=== PATIENT | female | born 1945 | race Caucasian/White ===

== ENCOUNTER → 2016-08-22 10:08 | Outpatient (CLI) | payer MEDICARE ==
[2016-08-08 12:09] VITALS: BMI 44.7
[~2016-08-22 10:08] MED LIST: BREO ELLIPTA 11 EACH INH; CRESTOR10 MG PO; FUROSEMIDE40 MG PO; HUMALOG 30100 UNITS/ SC; HUMALOG MIX 75/23 ML SC; IPRATROPIUM BR21 MCG NASAL; K-DUR20 MEQ PO; LANTUS INSULIN10 ML SC; LANTUS SOL100 UNIT/1; LYRICA50 MG PO; PRINIVIL10 MG PO; SINGULAIR10 MG PO; SORINE80 MG PO; SYNTHROID300 MCG PO; TOPROL XL25 MG PO; XARELTO20 MG PO; ZOLOFT50 MG PO
== END | disposition home or self-care (01) ==
LOC: D.CT 10:08
DX: N95.0 Postmenopausal bleeding (principal)

== ENCOUNTER 2016-11-14 05:15 | Day surgery (SDC) | payer MEDICARE ==
[2016-11-12 12:53] LABS: BASOPHILS 0.3 % (0.0-2.0); EOSINOPHILS 2.3 % (0-7); HEMATOCRIT 38.9 % (36.0-48.0); HEMOGLOBIN 11.4 g/dL (12-16); IMMATURE GRANULOCYTES 0.1 % (0-5); MCH 22.8 pg (26.0-34.0); MCHC 29.3 g/dL (31.0-37.0); MONOCYTES 8.4 % (2-11); NEUTROPHILS 52.9 % (40-80); PLATELET COUNT 267 10x3/uL (130-400); RBC 4.99 10x6/uL (4.00-5.40); RDW 17.8 % (11.5-14.5); WBC 7.8 10x3/uL (4.8-10.8)
[2016-11-12 13:05] LABS: APTT 24.4 SECONDS (22.8-39.4); INR 0.99 (0.85-1.17); PROTIME 12.9 SECONDS (11.6-15.0)
[2016-11-12 13:06] LABS: CALC OSMOLALITY 287 mosm/kg (275-300); CALCIUM 8.7 mg/dL (8.5-10.1); CARBON DIOXIDE 35.2 mmol/L (21.0-32.0); CHLORIDE - SERUM 104 mmol/L (98-107); CREATININE - SERUM 0.6 mg/dL (0.6-1.3); POTASSIUM - SERUM 3.7 mmol/L (3.5-5.1); SODIUM 144 mmol/L (136-145); UREA NITROGEN 17 mg/dL (7-18); eGFR NON AFRICAN AMERICAN > 90 mL/min (90-120)
[2016-11-12 13:10] LABS: GLUCOSE 73 mg/dL (74-106)
[~2016-11-14] VITALS: Ht 162.6 cm; Wt 109.3 kg
[2016-11-14 07:04] VITALS: BP 132/68; Ht 162.6 cm; Wt 109.3 kg
--- NOTE | 2016-11-14 07:10 | HP ---
PATIENT: JOSIAS HODGE MEDICAL RECORD: [id number] ACCOUNT: [id number] LOCATION:[facility] : 47 ADMISSION DATE: 11/14/16 HISTORY AND PHYSICAL EXAMINATION HISTORY OF PRESENT ILLNESS: This patient is a 71-year-old white female with postmenopausal bleeding, morbid obesity, precluding an adequate evaluation of her bleeding in our office. She has numerous medical problems and is followed by Dr. Chapman, her anaesthesiologist. Currently, taking Xarelto. MEDICATIONS: Include sertraline, levothyroxine, Lyrica, metoprolol, lisinopril, sotalol, furosemide, potassium, Crestor, montelukast, Humalog, Lantus, ipratropium bromide, and Breo. MEDICAL PROBLEMS: Include diabetes, hypertension, and morbid obesity. FAMILY HISTORY: Positive for depression, hypertension heart disease, bleeding problems, and lupus. REVIEW OF SYSTEMS: Currently, no chest pain. Positive for dyspnea. No abdominal pain. Positive for vaginal bleeding. SOCIAL HISTORY: The patient is , nonsmoker, occasional ethanol use. PHYSICAL EXAMINATION: VITAL SIGNS: Weight is 241 pounds with a BMI of 41. Blood pressure 130/64. HEENT: Grossly unremarkable. LUNGS: Clear. Lung sounds are distant. Breaths are shallow. BREASTS: Revealed no masses. ABDOMEN: Soft and protuberant. No organomegaly is detected. PELVIC: Unable to evaluate the cervix adequately. A blind Pap was done and is negative. Bimanual exam, unable to palpate the cervix or the uterus. Rectal confirms the above. EXTREMITIES: Edema. No cyanosis. IMPRESSION: Postmenopausal bleeding, inadequate office evaluation. PLAN: Examination under anesthesia, endocervical curettage, hysteroscopy, endometrial biopsy, endometrial curettage, repeat Pap smear. I have discussed indications for both the procedures as well as the risks, especially of anesthesia for this patient and answered all her questions. TRANSINT:[id number] Voice Confirmation ID: [id number] DOCUMENT ID: [id number] SHERRY HOSKINS MD at 0710 CC: [id number] DICTATION DATE: 11/12/16 1333 PALM GATHERER: 11/12/16 1617 [facility] [address] [place] [address]
--- NOTE | 2016-12-03 08:25 | OP ---
PATIENT NAME: JOSIAS HODGE MEDICAL RECORD: [id number] :47 LOCATION:[facility] ADMISSION DATE: SURGEON: SHERRY HOSKINS MD DATE OF OPERATION: 11/14/2016 PREOPERATIVE DIAGNOSIS: Postmenopausal bleeding. POSTOPERATIVE DIAGNOSIS: Postmenopausal bleeding. PROCEDURE: Examination under anesthesia, hysteroscopy with endometrial curettage. Pap smear also done. ANESTHESIA: General. FINDINGS: An elongated cervix located high in the vagina posteriorly, difficult to visualize, endometrium with a bland appearance and a large endometrial polyp. OPERATIVE NOTE: The patient was taken to the OR and under adequate general anesthesia, prepped and draped in the usual manner for vaginal procedures with legs in floating boot Reilly stirrups. Visualization of the cervix and vagina revealed the above listed findings. Upon palpation and identification of the cervix, tenaculum was placed. The endometrial cavity sounded to approximately 16 cm in depth. Cervix was progressively dilated to accept the hysteroscope and hysteroscope revealed the above listed findings. Biopsies were taken of the endometrial polyp and the base was extensively dissected, but it was not possible to remove through the elongated narrow cervix. Thorough curettage was also performed and sent as a separate specimen. At the end of procedure, bleeding was minimal and the patient went to recovery area in good condition. TRANSINT:[id number] Voice Confirmation ID: [id number] DOCUMENT ID: [id number] SHERRY HOSKINS MD at 0825 CC: [id number] DICTATION DATE: 11/14/16 1100 HELP DESK ASSOCIATE: 11/14/16 191 [facility] 11/14/16 [address] [place] [address] [place] [address]
== END 2016-11-14 13:05 | disposition home or self-care (01) ==
LOC: D.OPS 05:15 → D.PAN 07:30 → D.OPS 08:30
PROVIDERS: Anesthesiology; Obstetrics & Gynecology
DX: N95.0 Postmenopausal bleeding (principal); N84.0 Polyp of corpus uteri; E66.01 Morbid (severe) obesity due to excess calories; Z68.41 Body mass index [BMI] 40.0-44.9, adult; E11.9 Type 2 diabetes mellitus without complications; I10 Essential (primary) hypertension; Z79.01 Long term (current) use of anticoagulants; Z79.4 Long term (current) use of insulin; Z79.899 Other long term (current) drug therapy

== ENCOUNTER → 2016-12-21 09:51 | Outpatient (CLI) | payer MEDICARE ==
[2016-11-14 07:04] VITALS: BMI 41.4
[2016-12-22 07:23] LABS: IMMUNOGLOBULIN E 11 IU/mL (0-100)
[2016-12-23 18:06] LABS: ANGIOTENSIN CONVERTING ENZYME < 15 U/L (14-82)
== END | disposition home or self-care (01) ==
LOC: D.RAD 11-30 10:30 → D.RT 11-30 11:00
PROVIDERS: Internal Medicine Pulmonary Disease
DX: J45.909 Unspecified asthma, uncomplicated (principal); R59.1 Generalized enlarged lymph nodes

== ENCOUNTER 2017-03-19 11:40 | Outpatient (CLI) | payer MEDICARE ==
[2016-11-14 07:04] VITALS: BMI 41.4
== END 2017-03-19 14:10 ==
LOC: D.MAMMO 11:40
DX: Z12.31 Encounter for screening mammogram for malignant neoplasm of breast (principal)